=== PATIENT | female | born 1975 | race Two or more races ===

== ENCOUNTER 2021-09-17 09:05 | Emergency (ER) | payer MEDICAID ==
[~2021-09-17] VITALS: Ht 152.4 cm; Wt 88.0 kg
[2021-09-17 12:18] VITALS: BP 149/89
== END 2021-09-17 13:51 | disposition home or self-care (01) ==
LOC: ER 09:05
DX: S83.91XA Sprain of unspecified site of right knee, initial encounter (principal); S30.1XXA Contusion of abdominal wall, initial encounter; Z90.49 Acquired absence of other specified parts of digestive tract; W01.0XXA Fall on same level from slipping, tripping and stumbling without subsequent striking against object, initial encounter; Y93.89 Activity, other specified; Y92.89 Other specified places as the place of occurrence of the external cause; Y99.8 Other external cause status
CPT/HCPCS: 73562; 74176